=== PATIENT | female | born 1995 | race Two or more races ===

== ENCOUNTER → 2025-09-09 | Outpatient (CLI) | payer MEDICAID, SELFPAY ==
--- NOTE | 2025-09-09 09:00 | XR_ITS ---
Examination: Abdomen sonogram, complete Date and time of exam: September 09, 2025, 0929 hours INDICATIONS: Abdominal pain with heartburn and reflux for years. Technique: Multiple real-time grayscale transabdominal sonographic images of the abdomen have been obtained. Findings: Absent gallbladder. Normal common bile duct 0.3 cm Pancreatic head 2.2 cm Aorta not enlarged. Liver 19.3 cm fatty infiltration smooth contour Normal hepatopetal portal venous flow. Patent IVC. Right kidney 12.1 cm renal cortex 1.2 cm Left kidney 14.0 cm renal cortex 1.7 cm No hydronephrosis or renal calculi Spleen 9.6 cm IMPRESSION: Absent gallbladder Normal common bile duct Moderate hepatomegaly fatty infiltration
== END | disposition home or self-care (01) ==
LOC: CDIM 09:20 → SDIM 10:05 → CDIM 09-10 08:59
PROVIDERS: PCP Physician Assistant; Referring Provider Surgery; Visit Provider Surgery
DX: K76.0 Fatty (change of) liver, not elsewhere classified (principal); Z90.49 Acquired absence of other specified parts of digestive tract
CPT/HCPCS: 76700

== ENCOUNTER → 2025-09-14 | Outpatient (CLI) | payer MEDICAID, SELFPAY ==
--- NOTE | 2025-09-14 10:00 | XR_ITS ---
EXAM: Single contrast esophagram. INDICATION: Dysphagia. DATE: 09/14/2025, 10:37 a.m. Fluoroscopy time: 1.5 minutes Dose: 189.35 mGy PROCEDURE: Single contrast barium esophagram performed in multiple positions and multiple projections. Liquid barium contrast passes normally from the oropharynx through the esophagus into the stomach without evidence of delay. No evidence of esophageal mass, stricture, filling defect or diverticulum. No evidence of hiatal hernia or gastroesophageal reflux. IMPRESSION: Negative single contrast barium esophagram
== END | disposition home or self-care (01) ==
LOC: SDIM 09:55
PROVIDERS: PCP Physician Assistant; Referring Provider Surgery; Visit Provider Surgery
DX: R13.10 Dysphagia, unspecified (principal)
CPT/HCPCS: 74220; A4649